=== PATIENT | male | born 1940 | race Caucasian/White ===

== ENCOUNTER → 2024-09-27 | Day surgery (SDC) | payer MEDICARE, OTHER ==
[~2024-09-27] MED LIST: ACETAMINOPHEN 1000 MG/100 ML 100 ML IV ONE; BENICAR20 MG PO; DEXAMETHASONE SOD PHOS INJ 4 MG/ML SDV ONE; FENTANYL CITRATE/PF 100MCG/2 ML INJ ONE; LABETALOL HCL300 MG PO; LASIX40 MG PO; LIDOCAINE HCL 2% LOCAL INJ 5 ML SDV VIAL INJ ONE; LYRICA150 MG PO; MULTI-VITAMIN1 EACH PO; ONDANSETRON HCL INJ 2MG/ML 2ML 2 MG/ML VIAL ONE; PROPOFOL IV EMULSION 10 MG/ML 20 ML VIAL ONE
[2024-09-27] MEDS: LACTATED RINGER'S 1,000 ML ONE (08:04)
[2024-09-27 11:10] VITALS: TEMP 97.2
[2024-09-27 12:10] VITALS: BP 149/76; PULSE 56; RESP 16; O2SAT 96
== END | disposition home or self-care (01) ==
LOC: OR 06:19
PROVIDERS: ATTEND Otolaryngology Otolaryngology/Facial Plastic Surgery
DX: S09.91XA Unspecified injury of ear, initial encounter (principal); H93.12 Tinnitus, left ear; H90.3 Sensorineural hearing loss, bilateral; S09.90XA Unspecified injury of head, initial encounter; I10 Essential (primary) hypertension; I25.10 Atherosclerotic heart disease of native coronary artery without angina pectoris; G47.33 Obstructive sleep apnea (adult) (pediatric); E78.5 Hyperlipidemia, unspecified; F43.10 Post-traumatic stress disorder, unspecified; E66.9 Obesity, unspecified; E78.00 Pure hypercholesterolemia, unspecified; G62.9 Polyneuropathy, unspecified; G89.29 Other chronic pain; Z90.79 Acquired absence of other genital organ(s); Z87.891 Personal history of nicotine dependence; Z85.46 Personal history of malignant neoplasm of prostate; V89.2XXA Person injured in unspecified motor-vehicle accident, traffic, initial encounter
CPT/HCPCS: 69436; 71046; 93005; J0131; J1100; J2003; J2405; J2704; J3010; J7121